=== PATIENT | male | born 1970 | race American Indian/Alaskan Native ===

== ENCOUNTER 2016-05-25 01:13 | Emergency (ER) | payer MEDICARE, MEDICAID ==
[2016-05-25 01:21] VITALS: BP 152/87
--- NOTE | 2016-05-25 02:07 | EDM.PDOC ---
ED HPI RENAL/ - General Chief Complaint: Flank Pain Stated Complaint: KIDNEY STONE RIGHT SIDE Time Seen by Provider: 05/25/16 02:05 Source of Information: Reports: Patient History Limitations: Reports: No limitations - History of Present Illness INITIAL COMMENTS - FREE TEXT/NARRATIVE: gives recurrent h/o K-stones. last episode sent to GF for break-up procedure. - Related Data Allergies/ADRs: Allergies Allergy/AdvReac Type Severity Reaction Status Date / Time cat dander Allergy Sneezing Verified 05/25/16 01:21 dog dander Allergy Sneezing Verified 05/25/16 01:21 Home Meds: Home Meds . [No Known Home Meds] 05/25/16 [History] Past Medical History Genitourinary History: Reports: Renal calculus Social & Family History - Tobacco Use Smoking Status *Q: Never Smoker Second Hand Smoke Exposure: No - Recreational Drug Use Recreational Drug Use: No ED ROS GENERAL - Review of Systems Review Of Systems: ROS reveals no pertinent complaints other than HPI. ED EXAM, RENAL/ - Physical Exam Exam: See Below Exam Limited By: No limitations General Appearance: alert, WD/WN, mild distress, other (pain) Ears: hearing grossly normal Throat/Mouth: Normal voice, No airway compromise Head: atraumatic Neck: non-tender, full range of motion Respiratory/Chest: no respiratory distress Cardiovascular: regular rate, rhythm GI/Abdominal: soft, non tender Back Exam: CVA tenderness (R) Neurological: alert, oriented, normal cognition, normal gait, no motor/sensory deficits Psychiatric: tearful Skin Exam: Warm, Dry Lymphatic: no adenopathy Course - Vital Signs Last Recorded V/S: Last Vital Signs Temp 35.8 C 05/25/16 01:17 Pulse 88 05/25/16 01:17 Resp 20 05/25/16 01:17 BP 152/87 H 05/25/16 01:17 Pulse Ox 99 05/25/16 01:17 - Orders/Labs/Meds Orders: Active Orders 24 hr Category Date Time Status UA W/MICROSCOPIC [URIN] Stat Lab 05/25/16 01:25 Received - Re-Assessments/Exams Free Text/Narrative Re-Assessment/Exam: 05/25/16 02:06 states pain all gone now. prefer home. Departure - Departure Time of Disposition: 02:06 Disposition: Home, Self-Care 01 Condition: good Clinical Impression: Ureteric colic Instructions: Flank Pain, [id number] Forms: ED Department Discharge Additional Instructions: 1) rest 2) drink lots of water 3) recheck if there is any change - My Orders Last 24 Hours: My Active Orders 05/25/16 01:25 UA W/MICROSCOPIC [URIN] Stat - Assessment/Plan Last 24 Hours: My Active Orders 05/25/16 01:25 UA W/MICROSCOPIC [URIN] Stat
== END 2016-05-25 02:07 | disposition home or self-care (01) ==
LOC: DL.ED 01:13
DX: N23 Unspecified renal colic (principal); Z91.048 Other nonmedicinal substance allergy status; Z87.442 Personal history of urinary calculi
CPT/HCPCS: 81001; 99282; 99284

== ENCOUNTER 2017-03-16 06:44 | Emergency (ER) | payer MEDICARE, MEDICAID ==
[2017-03-16] MEDS ORDERED: Sodium Chloride 0.9% 1,000 ML IV ONE ×2 (06:52→07:30)
[2017-03-16 06:53] VITALS: BP 151/83
[2017-03-16 07:23] LABS: CHLORIDE,CL 101 mmol/L (101-111); SODIUM,NA 136 mmol/L (135-145)
[2017-03-16] MEDS ORDERED: Ketorolac 30 MG/ML SDV IVPUSH ONE (07:23)
--- NOTE | 2017-03-16 07:30 | EDM.PDOC ---
ED HPI GENERAL MEDICAL PROBLEM - General Chief Complaint: Flank Pain Stated Complaint: PAIN IN LEFT SIDE [id number] Time Seen by Provider: 03/16/17 07:24 Source of Information: Reports: Patient History Limitations: Reports: No Limitations - History of Present Illness INITIAL COMMENTS - FREE TEXT/NARRATIVE: This 47 yo male patient reports to the ED with left flank pain. The patient reports his pain started at about midnight and has been intermittent since last night. The patient took ibuprofen about 20 minutes prior to coming to the ED which helped his pain somewhat. The patient reports a history of kidney stones in the past. Onset: Today Onset Date: 03/16/17 Onset Time: 00:00 Duration: Week(s):, Getting Worse, Intermittent Location: Reports: Back (left flank) Quality: Reports: Ache, Burning Severity: Moderate Improves with: Reports: None Worsens with: Reports: None Associated Symptoms: Reports: No Other Symptoms Treatments [employer]PER[employer]OR: Reports: NSAIDS Left Flank Pain Score (Numeric/FACES): 2 - Related Data Allergies Allergy/AdvReac Type Severity Reaction Status Date / Time cat dander Allergy Sneezing Verified 03/16/17 06:49 dog dander Allergy Sneezing Verified 03/16/17 06:49 Home Meds: Home Meds . [No Known Home Meds] 05/25/16 [History] Past Medical History Genitourinary History: Reports: Renal Calculus - Past Surgical History HEENT Surgical History: Reports: Eye Surgery Social & Family History - Tobacco Use Smoking Status *Q: Never Smoker Second Hand Smoke Exposure: No - Recreational Drug Use Recreational Drug Use: No ED ROS GENERAL - Review of Systems Review Of Systems: ROS reveals no pertinent complaints other than HPI. ED EXAM, RENAL/ - Physical Exam Exam: See Below Exam Limited By: No Limitations General Appearance: Alert, WD/WN, Moderate Distress Eye Exam: Bilateral Eye: EOMI, Normal Inspection, PERRL Ears: Normal External Exam, Normal Canal, Hearing Grossly Normal, Normal TMs Nose: Normal Inspection, Normal Mucosa, No Blood Throat/Mouth: Normal Inspection, Normal Lips, Normal Teeth, Normal Gums, Normal Oropharynx, Normal Voice, No Airway Compromise Head: Atraumatic, Normocephalic Neck: Normal Inspection, Supple, Non-Tender, Full Range of Motion Respiratory/Chest: No Respiratory Distress, Lungs Clear, Normal Breath Sounds, No Accessory Muscle Use, Chest Non-Tender Cardiovascular: Normal Peripheral Pulses, Regular Rate, Rhythm, No Edema, No Gallop, No JVD, No Murmur, No Rub GI/Abdominal: Normal Bowel Sounds, Soft, Non-Tender, No Organomegaly, No Distention, No Abnormal Bruit, No Mass (Male) Exam: Deferred Rectal (Males) Exam: Deferred Back Exam: CVA Tenderness (L) Extremities: Normal Inspection, Normal Range of Motion, Non-Tender, Normal Capillary Refill, No Pedal Edema Neurological: Alert, Oriented, CN II-XII Intact, Normal Cognition, Normal Gait, Normal Reflexes, No Motor/Sensory Deficits Psychiatric: Normal Affect, Normal Mood Skin Exam: Warm, Dry, Intact, Normal Color, No Rash Lymphatic: No Adenopathy Course - Vital Signs Last Recorded V/S: Last Vital Signs Temp 36.4 C 03/16/17 06:46 Pulse 86 03/16/17 06:46 Resp 18 03/16/17 06:46 BP 151/83 H 03/16/17 06:51 Pulse Ox 98 03/16/17 06:46 - Orders/Labs/Meds Orders: Active Orders 24 hr Category Date Time Status Abdomen Pelvis wo Cont [CT] Urgent Exams 03/16/17 07:14 Taken Sodium Chloride 0.9% [Normal Saline] 1,000 ml Med 03/16/17 07:30 Active IV .BOLUS Medication Orders Sodium Chloride (Normal Saline) 1,000 mls @ 999 mls/hr IV .BOLUS ONE Stop: 03/16/17 08:30 Last Admin: 03/16/17 07:32 Dose: 999 mls/hr Labs: Laboratory Tests 03/16/17 03/16/17 03/16/17 Range/Units 06:53 06:53 07:00 WBC 11.9 H (5.0-10.0) 10^3/uL RBC 5.08 (4.6-6.2) 10^6/uL Hgb 15.1 (14.0-18.0) g/dL Hct 45.1 (40.0-54.0) % MCV 88.8 (80-100) fL MCH 29.7 (27.0-34.0) pg MCHC 33.5 (33.0-35.0) g/dL Plt Count 288 (150-450) 10^3/uL Neut % (Auto) 78.8 H (42.2-75.2) % Lymph % (Auto) 12.4 L (20.5-50.1) % [place] % (Auto) 7.1 (2-8) % Eos % (Auto) 1.4 (1.0-3.0) % Baso % (Auto) 0.3 (0.0-1.0) % Sodium (135-145) mmol/L Potassium (3.6-5.0) mmol/L Chloride (101-111) mmol/L Carbon Dioxide (21.0-31.0) mmol/L Anion Gap BUN (7-18) mg/dL Creatinine (0.6-1.3) mg/dL Est Cr Clr Drug Dosing mL/min Estimated GFR (MDRD) BUN/Creatinine Ratio Glucose (74-105) mg/dL Calcium (8.4-10.2) mg/dl Total Bilirubin (0.2-1.0) mg/dL AST (10-42) IU/L ALT (10-60) IU/L Alkaline Phosphatase (42-121) IU/L Total Protein (6.7-8.2) g/dl Albumin (3.2-5.5) g/dl Globulin Albumin/Globulin Ratio Urine Color Yellow (YELLOW) Urine Appearance Slightly cloudy (CLEAR) Urine pH 7.5 (5.0-9.0) Ur Specific [place] 1.020 (1.005-1.030) Urine Protein 30 H (NEGATIVE) Urine Glucose (UA) Negative (NEGATIVE) Urine Ketones Negative (NEGATIVE) Urine Occult Blood Moderate H (NEGATIVE) Urine Nitrite Negative (NEGATIVE) Urine Bilirubin Negative (NEGATIVE) Urine Urobilinogen 0.2 (0.2-1.0) mg/dL Ur Leukocyte Esterase Negative (NEGATIVE) Urine RBC 75-100 H /HPF Urine WBC 0-5 (0-5/HPF) /HPF Ur Epithelial Cells Few /HPF Urine Bacteria Rare (0-FEW/HPF) /HPF Urine Opiates Screen Negative (NEGATIVE) Ur Oxycodone Screen Negative (NEGATIVE) Urine Methadone Screen Negative (NEGATIVE) Ur Barbiturates Screen Negative (NEGATIVE) U Tricyclic Antidepress Negative (NEGATIVE) Ur Phencyclidine Scrn Negative (NEGATIVE) Ur Amphetamine Screen Negative (NEGATIVE) U Methamphetamines Scrn Negative (NEGATIVE) Urine MDMA Screen Negative (NEGATIVE) U Benzodiazepines Scrn Negative (NEGATIVE) Urine Cocaine Screen Negative (NEGATIVE) U Marijuana (THC) Screen Negative (NEGATIVE) 03/16/17 Range/Units 07:00 WBC (5.0-10.0) 10^3/uL RBC (4.6-6.2) 10^6/uL Hgb (14.0-18.0) g/dL Hct (40.0-54.0) % MCV (80-100) fL MCH (27.0-34.0) pg MCHC (33.0-35.0) g/dL Plt Count (150-450) 10^3/uL Neut % (Auto) (42.2-75.2) % Lymph % (Auto) (20.5-50.1) % [place] % (Auto) (2-8) % Eos % (Auto) (1.0-3.0) % Baso % (Auto) (0.0-1.0) % Sodium 136 (135-145) mmol/L Potassium 4.1 (3.6-5.0) mmol/L Chloride 101 (101-111) mmol/L Carbon Dioxide 24.0 (21.0-31.0) mmol/L Anion Gap 15.1 BUN 15 (7-18) mg/dL Creatinine 1.1 (0.6-1.3) mg/dL Est Cr Clr Drug Dosing 72.99 mL/min Estimated GFR (MDRD) > 60 BUN/Creatinine Ratio 13.63 Glucose 114 H (74-105) mg/dL Calcium 9.3 (8.4-10.2) mg/dl Total Bilirubin 0.5 (0.2-1.0) mg/dL AST 28 (10-42) IU/L ALT 32 (10-60) IU/L Alkaline Phosphatase 64 (42-121) IU/L Total Protein 8.4 H (6.7-8.2) g/dl Albumin 3.9 (3.2-5.5) g/dl Globulin 4.5 Albumin/Globulin Ratio 0.87 Urine Color (YELLOW) Urine Appearance (CLEAR) Urine pH (5.0-9.0) Ur Specific [place] (1.005-1.030) Urine Protein (NEGATIVE) Urine Glucose (UA) (NEGATIVE) Urine Ketones (NEGATIVE) Urine Occult Blood (NEGATIVE) Urine Nitrite (NEGATIVE) Urine Bilirubin (NEGATIVE) Urine Urobilinogen (0.2-1.0) mg/dL Ur Leukocyte Esterase (NEGATIVE) Urine RBC /HPF Urine WBC (0-5/HPF) /HPF Ur Epithelial Cells /HPF Urine Bacteria (0-FEW/HPF) /HPF Urine Opiates Screen (NEGATIVE) Ur Oxycodone Screen (NEGATIVE) Urine Methadone Screen (NEGATIVE) Ur Barbiturates Screen (NEGATIVE) U Tricyclic Antidepress (NEGATIVE) Ur Phencyclidine Scrn (NEGATIVE) Ur Amphetamine Screen (NEGATIVE) U Methamphetamines Scrn (NEGATIVE) Urine MDMA Screen (NEGATIVE) U Benzodiazepines Scrn (NEGATIVE) Urine Cocaine Screen (NEGATIVE) U Marijuana (THC) Screen (NEGATIVE) Meds: Medications Generic Name Dose Route Start Last Admin Trade Name Freq PRN Reason Stop Dose Admin Sodium Chloride 1,000 mls @ 999 mls/hr 03/16/17 07:30 03/16/17 07:32 Normal Saline IV 03/16/17 08:30 999 mls/hr .BOLUS ONE Administration Discontinued Medications Generic Name Dose Route Start Last Admin Trade Name Freq PRN Reason Stop Dose Admin Hydrocodone Bitart/Acetaminophen 1 tab 03/16/17 08:05 03/16/17 08:09 Solomon 325-10 Mg PO 03/16/17 08:06 1 tab ONETIME ONE Administration Sodium Chloride 1,000 mls @ 999 mls/hr 03/16/17 06:52 03/16/17 06:58 Normal Saline IV 03/16/17 07:52 999 mls/hr .BOLUS ONE Administration Ketorolac Tromethamine 30 mg 03/16/17 07:23 03/16/17 07:32 Toradol IVPUSH 03/16/17 07:24 30 mg ONETIME ONE Administration Tamsulosin HCl 0.4 mg 03/16/17 08:05 Flomax PO 03/16/17 08:06 ONETIME ONE Departure - Departure Time of Disposition: 08:30 Disposition: Home, Self-Care 01 Condition: Fair Clinical Impression: Kidney stone on left side - Discharge Information Instructions: Kidney Stones, [id number] Forms: ED Department Discharge Care Plan Goals: The patient was advised of the examination, lab and CT results during the visit. The patient was given 2 liters of IV fluid, IV Toradol, oral Solomon and oral Flomax while in the ED. The patient was discharged with a script for; 1) Toradol (10 mg) #20 to take 1 by mouth every 6 hours, 2) Flomax (0.4 mg) #5 to take 1 by mouth daily and 3) Solomon (10/325) #5 to take 1 by mouth every 6 hours as needed for pain. If the patient has any additional symptoms or further concerns, the patient should follow-up with his primary care facility or return to the emergency department. - My Orders Last 24 Hours: My Active Orders 03/16/17 07:14 Abdomen Pelvis wo Cont [CT] Urgent 03/16/17 07:30 Sodium Chloride 0.9% [Normal Saline] 1,000 ml IV .BOLUS - Assessment/Plan Last 24 Hours: My Active Orders 03/16/17 07:14 Abdomen Pelvis wo Cont [CT] Urgent 03/16/17 07:30 Sodium Chloride 0.9% [Normal Saline] 1,000 ml IV .BOLUS
[2017-03-16] MEDS ORDERED: Tamsulosin 0.4 MG Cap.ER PO ONE (08:05)
[2017-03-16] MEDS ORDERED: Acetaminophen/HYDROcodone 325-10 MG Tab PO ONE (08:05)
== END 2017-03-16 08:28 | disposition home or self-care (01) ==
LOC: DL.ED 06:44
DX: N13.2 Hydronephrosis with renal and ureteral calculous obstruction (principal); Z91.048 Other nonmedicinal substance allergy status
CPT/HCPCS: 36415; 74176; 80053; 80305; 81001; 85025; 96361; 96374; 99284; A9270; J1885; J7030

== ENCOUNTER 2020-12-22 02:04 | Emergency (ER) | payer MEDICARE ==
--- NOTE | 2020-12-22 02:32 | EDM.PDOC ---
ED HPI GENERAL MEDICAL PROBLEM - General Stated Complaint: CHEST CONGESTION Time Seen by Provider: 12/22/20 02:21 Source of Information: Reports: Patient History Limitations: Reports: No Limitations - History of Present Illness INITIAL COMMENTS - FREE TEXT/NARRATIVE: ED with c/o chest congestion x 2 days. No fever chills or body aches. no loss of taste or smell. No nasal drainage. No nausea. Has tried Nyquil today. - Related Data Allergies Allergy/AdvReac Type Severity Reaction Status Date / Time cat dander Allergy Sneezing Verified 09/02/18 23:55 dog dander Allergy Sneezing Verified 09/02/18 23:55 Home Meds: Home Meds . [No Known Home Meds] 05/25/16 [History] Past Medical History Genitourinary History: Reports: Renal Calculus - Past Surgical History HEENT Surgical History: Reports: Eye Surgery Social & Family History - Family History Family Medical History: No Pertinent Family History - Caffeine Use Caffeine Use: Reports: Soda ED ROS GENERAL - Review of Systems Review Of Systems: Comprehensive ROS is negative, except as noted in HPI. ED EXAM, GENERAL - Physical Exam Exam: See Below Exam Limited By: No Limitations General Appearance: Alert, No Apparent Distress Eye Exam: Bilateral Eye: EOMI Ears: Normal External Exam, Normal TMs Nose: Normal Inspection Throat/Mouth: Normal Inspection Head: Atraumatic, Normocephalic Neck: Normal Inspection, Full Range of Motion Respiratory/Chest: No Respiratory Distress, Lungs Clear, Normal Breath Sounds Cardiovascular: Normal Peripheral Pulses, Regular Rate, Rhythm GI/Abdominal: Normal Bowel Sounds, Soft Extremities: Normal Inspection Neurological: Alert, Oriented, Normal Cognition Psychiatric: Anxious Skin Exam: Warm, Dry, Intact, Normal Color Course - Vital Signs Last Recorded V/S: Last Vital Signs Temp 98.6 F 12/22/20 02:42 Pulse 98 12/22/20 02:42 Resp 18 12/22/20 02:42 BP 138/84 12/22/20 02:42 Pulse Ox 96 12/22/20 02:42 Departure - Departure Time of Disposition: 02:32 Disposition: Home, Self-Care 01 Condition: Good Clinical Impression: URI (upper respiratory infection) Qualifiers: URI type: unspecified viral URI Qualified Code(s): J06.9 - Acute upper respiratory infection, unspecified - Discharge Information *PRESCRIPTION DRUG MONITORING PROGRAM REVIEWED*: No *COPY OF PRESCRIPTION DRUG MONITORING REPORT IN PATIENT ALVERTO: No Instructions: Viral Respiratory Infection, [id number], Acute Bronchitis, Adult, [id number] Additional Instructions: muccinex or robitussin per label instructions humidification increase fluids follow up if worsening symptoms or difficulty breathing consider covid testing at local testing site if worsening or concerns Sepsis Event Note (ED) - Evaluation Sepsis Screening Result: No Definite Risk - Focused Exam Vital Signs: Vital Signs Temp Pulse Resp BP Pulse Ox 12/22/20 02:42 98.6 F 98 18 138/84 96 12/22/20 02:17 98 F 106 H 20 153/91 H 97
[2020-12-22 02:43] VITALS: BP 138/84; PULSE 98
== END 2020-12-22 02:43 | disposition home or self-care (01) ==
LOC: DL.ED 02:04
DX: J06.9 Acute upper respiratory infection, unspecified (principal); Z91.09 Other allergy status, other than to drugs and biological substances
CPT/HCPCS: 99283